=== PATIENT | male | born 1945 | race Caucasian/White ===

== ENCOUNTER 2023-08-10 08:29 | Outpatient (CLI) | payer MEDICARE, OTHER, SELFPAY ==
--- NOTE | ~2023-08-10 | MR_ITS ---
MRI of the lumbar spine Clinical History: Spondylolisthesis Technique: Axial T2-weighted images, and sagittal T1-weighted, T2-weighted, and and T2 fat-sat images were acquired. Findings: No fracture identified. There is minimal grade 1 anterolisthesis of L5 over S1. No suspicio us bone marrow signal abnormality seen. At L1-L2, there is no significant disc bulge or herniation. There is mild facet arthropathy. No centr al canal stenosis or neural foraminal narrowing. At L2-L3, there is disc bulge with central disc protrusion and mild to moderate facet arthropathy. No charlotte central canal stenosis or neural foraminal narrowing. L3-L4, there is disc bulge and facet arthropathy, with minimal central canal stenosis. There is advan milton right neural foraminal narrowing, and minimal left neural foraminal narrowing. At L4-L5, disc bulge and severe facet arthropathy result in severe spinal canal stenosis/thecal sac c ompression. There is severe right neural foraminal narrowing, and mild to moderate left neural forami nal narrowing. At L5-S1, disc bulge/uncovering and severe facet arthropathy result in moderate to severe central can al stenosis/thecal sac compression. There is severe right neural foraminal narrowing, and moderate to severe left neural foraminal narrowing. Paravertebral soft tissues are unremarkable. Impression: Severe degenerative spondylosis at L4-L5 and L5-S1, as detailed above, with severe thecal sac ramón heidi/spinal canal stenosis and bilateral neural foraminal narrowing at these levels. Minimal grade 1 anterolisthesis of L5 over S1. Reviewed, dictated and finalized at [facility]. [place] [employer] Impression: Severe degenerative spondylosis at L4-L5 and L5-S1, as detailed above, with sev ere thecal sac compression/spinal canal stenosis and bilateral neural foraminal narrowing at these levels. Minimal grade 1 anterolisthesis of L5 over S1.
== END 2023-08-10 08:30 | disposition home or self-care (01) ==
DX: M43.17 Spondylolisthesis, lumbosacral region (principal); M51.36 Other intervertebral disc degeneration, lumbar region
CPT/HCPCS: 72148